=== PATIENT | female | born 1955 | race Caucasian/White ===

== ENCOUNTER 2017-08-09 07:20 | Outpatient (CLI) | payer OTHER ==
[~2017-08-09 07:20] MED LIST: METFORMIN HCL1000 M1 PO; PROTONIX20 MG PO; ZOFRAN4 MG SL
== END 2017-08-09 07:34 | disposition home or self-care (01) ==
LOC: LAB 07:20
DX: D75.89 Other specified diseases of blood and blood-forming organs (principal); Z86.010 Personal history of colon polyps; K63.5 Polyp of colon; E11.9 Type 2 diabetes mellitus without complications; I10 Essential (primary) hypertension; D50.8 Other iron deficiency anemias; D51.8 Other vitamin B12 deficiency anemias; D55.0 Anemia due to glucose-6-phosphate dehydrogenase [G6PD] deficiency; D51.0 Vitamin B12 deficiency anemia due to intrinsic factor deficiency; D51.1 Vitamin B12 deficiency anemia due to selective vitamin B12 malabsorption with proteinuria; E03.8 Other specified hypothyroidism; R97.0 Elevated carcinoembryonic antigen [CEA]

== ENCOUNTER 2017-12-12 08:14 | Outpatient (CLI) | payer OTHER | END 2017-12-12 08:30 | disposition home or self-care (01) | LOC: LAB 08:14 | DX: D12.6 Benign neoplasm of colon, unspecified (principal); D75.89 Other specified diseases of blood and blood-forming organs; D51.1 Vitamin B12 deficiency anemia due to selective vitamin B12 malabsorption with proteinuria; D51.3 Other dietary vitamin B12 deficiency anemia; Z86.010 Personal history of colon polyps; K63.5 Polyp of colon; I10 Essential (primary) hypertension; E11.9 Type 2 diabetes mellitus without complications; D50.8 Other iron deficiency anemias; E03.8 Other specified hypothyroidism ==

== ENCOUNTER 2018-03-21 08:20 | Outpatient (CLI) | payer OTHER | END 2018-03-21 08:28 | disposition home or self-care (01) | LOC: LAB 08:20 | DX: D12.6 Benign neoplasm of colon, unspecified (principal); D75.89 Other specified diseases of blood and blood-forming organs; D51.1 Vitamin B12 deficiency anemia due to selective vitamin B12 malabsorption with proteinuria; D51.3 Other dietary vitamin B12 deficiency anemia; Z86.010 Personal history of colon polyps; K63.5 Polyp of colon; I10 Essential (primary) hypertension; E11.9 Type 2 diabetes mellitus without complications; D50.8 Other iron deficiency anemias; D51.8 Other vitamin B12 deficiency anemias; E03.8 Other specified hypothyroidism; K90.89 Other intestinal malabsorption; R97.0 Elevated carcinoembryonic antigen [CEA]; D51.0 Vitamin B12 deficiency anemia due to intrinsic factor deficiency ==

== ENCOUNTER 2020-03-31 08:40 | Outpatient (CLI) | payer OTHER | END 2020-03-31 08:42 | disposition home or self-care (01) | LOC: SONOGRAMA 08:40 | PROVIDERS: ATTEND Pathology Anatomic Pathology & Clinical Pathology | DX: E04.1 Nontoxic single thyroid nodule (principal) ==